=== PATIENT | male | born 1985 | race Caucasian/White ===

== ENCOUNTER 2024-01-04 18:47 | Emergency (ER) | payer OTHER, MEDICAID, SELFPAY ==
[2024-01-04 18:48] VITALS: BP 156/91; PULSE 70; RESP 18; TEMP 37; O2SAT 100; BMI 28.7
--- NOTE | 2024-01-04 20:10 | ED_ITS ---
HPI - Dental/Oral General Chief complaint: Dental/Oral Stated complaint: tooth pain Time Seen by Provider: 01/04/24 18:52 Source: patient Mode of arrival: Ambulatory History of Present Illness HPI Narrative: 38yoM presents for L jaw swelling and pain. Has known dental caries. He states that he tried to go to a dentist office today but he was unable to make a walk- in appointment. He has an appointment scheduled tomorrow for x-rays and dental evaluation but is here to see about getting onto antibiotics Related Data Home Medications Medication Instructions Recorded Confirmed [CBD capsules] ##0 06/02/16 Previous Rx's Medication Instructions Recorded amoxicillin 875 mg-potassium 1 tab PO Q12H #20 tabs 01/04/24 clavulanate 125 mg tablet chlorhexidine gluconate 0.12 % 15 ml buccal BID #473 mL 01/04/24 mouthwash (Peridex) Allergies Allergy/AdvReac Type Severity Reaction Status Date / Time PREDNISONE Allergy Unknown Fainting Uncoded 01/04/24 18:53 Patient History Social History Smoking Status: Never smoker Smoking Status: Never smoker alcohol intake frequency: a few times a week Substance Use Type: marijuana Exam Initial Vital Signs Initial Vital Signs: Vital Signs Temperature 98.6 F 01/04/24 18:48 Pulse Rate 70 01/04/24 18:48 Respiratory Rate 18 01/04/24 18:48 Blood Pressure 156/91 H 01/04/24 18:48 Pulse Oximetry 100 01/04/24 18:48 Oxygen Delivery Method Room Air 01/04/24 18:48 Const: Awake, alert, no acute distress, nontoxic appearing Mouth: No trismus, no pooling of secretions, decayed left mandibular molar, minimal facial swelling Skin: Warm, Dry, intact, no rashes Neuro: AO x3, CN II-XII grossly intact, moves all extremities Procedures Nerve Block Nerve Block 1: Local Anesthetic: lidocaine 1% and with epi Amount of anesthesia used (mL): 3 Side: left Nerve Blocks: other (Dental) Intraoral Nerve Block: inferior alveolar Procedure Successful: Yes Patient Tolerated Procedure: Well and No complications Complications: none Course Orders Ordered: Discontinued Medications Amoxicillin/Clavulanate Potassium (Amoxicillin/Clav 875/125 Mg) 1 tab PO NOW ONE Stop: 01/04/24 20:11 Last Admin: 01/04/24 20:20 Dose: 1 tab Documented By: LUIZA Vital Signs Vital signs: Vital Signs - 8 hr 01/04/24 20:25 Pulse Rate 74 Respiratory Rate 16 Blood Pressure 131/79 Pulse Oximetry 99 Oxygen Delivery Method Room Air MDM - Dental/Oral Differential Diagnosis Differential diagnosis: Likely gingival abscess, dental caries and toothache MDM Narrative Medical decision making narrative: Dental caries with minimal soft tissue swelling of left mandible. No trismus, he has dental caries present with obvious decayed tooth in the left mandibular region. Patient was given a inferior alveolar nerve block for comfort, since pharmacies are about to close he was given his initial dose of Augmentin in the emergency department. Discharged with prescription of Augmentin and Peridex. Discharge Plan Departure Patient Disposition: Home Clinical Impression: Dental abscess Instructions: Tooth Decay Activity Restrictions/Additional Instructions: Take Tylenol and ibuprofen as needed for pain. Finish all of the antibiotics prescribed even if your tooth feels better. Prescriptions: New amoxicillin-pot clavulanate 875-125 mg tablet 1 tab PO Q12H Qty: 20 0RF chlorhexidine gluconate [Peridex] 0.12 % mouthwash 15 ml buccal BID Qty: 473 0RF No Action [CBD capsules] Qty: 0 Referrals: Halie Becerra MD [Primary Care Provider] - Stand Alone Forms: Patient Portal/API
[2024-01-04] MEDS: AMOXICILLIN/CLAV 875/125 MG 1 TAB PO (20:20)
[2024-01-04 20:25] VITALS: BP 131/79; PULSE 74; RESP 16; O2SAT 99
== END 2024-01-04 20:27 | disposition home or self-care (01) ==
PROVIDERS: Emergency Provider Emergency Medicine; Family Provider Family Medicine; PCP Family Medicine
DX: K04.7 Periapical abscess without sinus (principal)
CPT/HCPCS: 64450; 99283